=== PATIENT | female | born 1995 | race Caucasian/White ===

== ENCOUNTER 2020-07-24 21:10 | Emergency (ER) | payer MEDICAID ==
[~2020-07-24] VITALS: Ht 157.5 cm; Wt 65.8 kg
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
[2020-07-24] MEDS ORDERED: ACETAMINOPHEN ES 500 MG TABLET ONE (21:40)
--- NOTE | 2020-07-24 21:40 | NUR ---
XRAY AT BEDSIDE
[2020-07-24] MEDS ORDERED: ACETAMINOPHEN 325 MG TABLET PO ONE (22:00)
--- NOTE | 2020-07-24 22:53 | NUR ---
Patient discharged to home in stable condition. Written and verbal after care instructions given. Patient verbalizes understanding of instruction. Gait training done. Pt wheeled to family for dc
[2020-07-24 23:05] VITALS: BP 112/62
== END 2020-07-24 23:05 | disposition home or self-care (01) ==
LOC: ER 21:14
DX: S80.211A Abrasion, right knee, initial encounter (principal); M25.551 Pain in right hip; M54.5 Low back pain; M25.522 Pain in left elbow; V49.49XA Driver injured in collision with other motor vehicles in traffic accident, initial encounter; Y93.89 Activity, other specified; Y92.488 Other paved roadways as the place of occurrence of the external cause; Y99.8 Other external cause status
CPT/HCPCS: 72110-TC; 73080-TC; 73502

== ENCOUNTER 2021-01-23 18:31 | Emergency (ER) | payer MEDICAID, OTHER ==
[~2021-01-23] VITALS: Ht 144.8 cm; Wt 63.5 kg
[2021-01-23 18:53] VITALS: BP 121/65
[2021-01-23] MEDS ORDERED: ACET-2605 PO (19:03)
[2021-01-23] MEDS ORDERED: CYCL5TAB PO (19:03)
--- NOTE | 2021-01-23 19:09 | NUR ---
Patient discharged to home in stable condition. Written and verbal after care instructions given. Patient verbalizes understanding of instruction.
== END 2021-01-23 19:09 | disposition home or self-care (01) ==
LOC: ER 18:37
DX: S09.8XXA Other specified injuries of head, initial encounter (principal); M54.2 Cervicalgia; V49.49XA Driver injured in collision with other motor vehicles in traffic accident, initial encounter; Y93.89 Activity, other specified; Y92.413 State road as the place of occurrence of the external cause; Y99.8 Other external cause status

== ENCOUNTER 2021-05-07 18:57 | Emergency (ER) | payer OTHER ==
[~2021-05-07] VITALS: Ht 144.8 cm; Wt 68.0 kg
[~2021-05-07 18:57] MED LIST: ACET-2605 PO; CYCL5TAB PO
[2021-05-07 19:44] VITALS: BP 132/84
[2021-05-07] MEDS ORDERED: CYCLOBENZAPRINE 10 MG TABLET PO ONE (20:00)
[2021-05-07] MEDS ORDERED: KETOROLAC TROMETHAMINE INJ 60 MG/2 ML VIAL IM ONE ×2 (20:00→20:13)
[2021-05-07] MEDS ORDERED: CYCLOBENZAPRINE 10 MG TABLET ONE (20:13)
[2021-05-07] MEDS ORDERED: NAPR500T6 PO (20:27)
[2021-05-07] MEDS ORDERED: CYCL10TA9 PO (20:27)
== END 2021-05-07 20:36 | disposition home or self-care (01) ==
LOC: ER 19:58
DX: M79.10 Myalgia, unspecified site (principal); M25.512 Pain in left shoulder; R07.89 Other chest pain; M54.50 Low back pain, unspecified; Z79.899 Other long term (current) drug therapy; Z60.2 Problems related to living alone
CPT/HCPCS: 71045; 96372; 99283; J1885

== ENCOUNTER 2021-05-22 00:25 | Emergency (ER) | payer OTHER ==
[~2021-05-22] VITALS: Ht 144.8 cm; Wt 72.6 kg
[~2021-05-22 00:25] MED LIST changes: +CYCL10TA9 PO; +NAPR500T6 PO
[2021-05-22 01:13] VITALS: BP 136/92
[2021-05-22] MEDS ORDERED: HYDR453. TP (01:37)
== END 2021-05-22 01:39 | disposition home or self-care (01) ==
LOC: ER 00:25
DX: R21 Rash and other nonspecific skin eruption (principal); Z60.2 Problems related to living alone

== ENCOUNTER 2021-08-08 07:08 | Emergency (ER) | payer OTHER ==
[~2021-08-08] VITALS: Ht 149.9 cm; Wt 78.5 kg
[~2021-08-08 07:08] MED LIST changes: +HYDR453. TP
--- NOTE | 2021-08-08 07:22 | NUR ---
BIBSELF C/O SOB WITH COUGH FOR 1 WEEK. PATIENT ALERT AND ORIENTED X3. AMBULATORY AND PLACED IN BED 01 ON MONITOR AND POX.
--- NOTE | 2021-08-08 07:50 | NUR ---
Patient discharged to home in stable condition. Written and verbal after care instructions given. Patient verbalizes understanding of instruction.
[2021-08-08 08:01] VITALS: BP 150/90
== END 2021-08-08 08:03 | disposition home or self-care (01) ==
LOC: ER 07:11
DX: R09.82 Postnasal drip (principal); Z79.1 Long term (current) use of non-steroidal anti-inflammatories (NSAID); Z79.52 Long term (current) use of systemic steroids; Z79.899 Other long term (current) drug therapy; Z60.2 Problems related to living alone

== ENCOUNTER 2022-01-20 19:50 | Emergency (ER) | payer MEDICAID, OTHER ==
[~2022-01-20] VITALS: Ht 144.8 cm; Wt 88.5 kg
[2022-01-20] MEDS ORDERED: ONDANSETRON 4 MG TAB.RAPDIS ONE (21:18)
[2022-01-20] MEDS ORDERED: GUAIFENESIN/D-METHORPHAN HB 5 ML UDC ONE (21:18)
--- NOTE | 2022-01-20 21:28 | NUR ---
COVID SWAB COLLECTED SENT TO LAB
[2022-01-20] MEDS ORDERED: GUAIFENESIN/D-METHORPHAN HB 5 ML UDC PO ONE (21:30)
[2022-01-20] MEDS ORDERED: ONDANSETRON 4 MG TAB.RAPDIS SL ONE (21:30)
[2022-01-20] MEDS ORDERED: AZIT250T13 PO (22:48)
[2022-01-20] MEDS ORDERED: GUAI1TBM19 PO (22:48)
[2022-01-20] MEDS ORDERED: BENZ-13 PO (22:48)
--- NOTE | 2022-01-20 22:59 | NUR ---
Patient discharged to home in stable condition. Written and verbal after care instructions given. Patient verbalizes understanding of instruction.
[2022-01-20 23:00] VITALS: BP 138/77
== END 2022-01-20 23:00 | disposition home or self-care (01) ==
LOC: ER 19:52
DX: J40 Bronchitis, not specified as acute or chronic (principal); Z20.822 Contact with and (suspected) exposure to COVID-19
CPT/HCPCS: 99284; 71045; 87426; Q0162; C9803

== ENCOUNTER 2023-04-01 06:05 | Emergency (ER) | payer MEDICAID, OTHER ==
[~2023-04-01] VITALS: Ht 144.8 cm; Wt 84.8 kg
[~2023-04-01 06:05] MED LIST changes: +AZIT250T13 PO; +BENZ-13 PO; +GUAI1TBM19 PO
[2023-04-01 07:00] LABS: BASOPHILS # (AUTO) 0.1 K/uL (0.0-0.2); BASOPHILS % (AUTO) 0.8 % (0.0-2.0); EOSINOPHILS # (AUTO) 0.1 K/uL (0.0-0.7); EOSINOPHILS % (AUTO) 1.2 % (0.0-6.0); HEMATOCRIT 41 % (33-45); HEMOGLOBIN 13.5 g/dL (11.5-14.8); LYMPHOCYTES # (AUTO) 1.7 K/uL (0.8-4.8); LYMPHOCYTES % (AUTO) 18.9 % (20.0-44.0); MEAN CORPUSCULAR HEMOGLOBIN 30 PG (26.0-33.0); MEAN CORPUSCULAR HGB CONC 33 g/dl (31.0-36.0); MEAN CORPUSCULAR VOLUME 91 fL (82-100); MONOCYTES # (AUTO) 0.5 K/uL (0.1-1.30); NEUTROPHILS # (AUTO) 6.5 K/uL (1.8-8.9); NEUTROPHILS % (AUTO) 73.1 % (43.0-81.0); PLATELET COUNT (AUTO) 266 K/uL (150-450); RED BLOOD CELL COUNT(AUTO) 4.48 MIL/uL (4.0-5.2); RED CELL DISTRIBUTION WIDTH 13.8 % (11.5-15.0); WHITE BLOOD COUNT (AUTO) 8.8 K/uL (4.3-11.0)
[2023-04-01 07:15] LABS: ALBUMIN 3.9 g/dL (3.4-5.0); BILIRUBIN,DIRECT 0.1 mg/dL (0.0-0.2); BILIRUBIN,TOTAL 0.4 mg/dL (0.2-1.0); CALCIUM, SERUM 9.2 mg/dL (8.5-10.1); CREATININE 0.9 mg/dL (0.6-1.3); POTASSIUM 4.3 mmol/L (3.5-5.1); TOTAL PROTEIN, SERUM 7.6 g/dL (6.4-8.2)
[2023-04-01 07:44] LABS: APPEARANCE,URINE CLEAR (CLEAR); BILIRUBIN,URINE NEGATIVE (NEGATIVE); BLOOD, URINE 3+ Ery/uL (NEGATIVE); COLOR,URINE YELLOW (YELLOW); KETONES,URINE 1+ mg/dL (NEGATIVE); LEUKOCYTE ESTERASE ,URINE NEGATIVE (NEGATIVE); NITRITE, URINE NEGATIVE (NEGATIVE); PROTEIN,URINE TRACE mg/dl (NEGATIVE); UGLUCOSE NEGATIVE (NEGATIVE); UROBILINOGEN,URINE 0.2 EU/dL (0.2)
[2023-04-01 07:48] LABS: PREGNANCY TEST URINE QUAL NEGATIVE (NEGATIVE)
[2023-04-01 08:09] LABS: ADD URINE CULTURE YES; BACTERIA,URINE Few /HPF (None Seen); SQUAMOUS EPITHELIAL CELL,UR Many /HPF (None Seen)
[2023-04-01] MEDS ORDERED: LOPE2TAB25 PO (08:12)
[2023-04-01] MEDS ORDERED: ONDA4TAB5 PO (08:12)
[2023-04-01 08:48] VITALS: BP 104/60; TEMP 98.8; O2SAT 100
== END 2023-04-01 08:48 | disposition home or self-care (01) ==
LOC: ER 06:06
DX: K52.9 Noninfective gastroenteritis and colitis, unspecified (principal); F17.200 Nicotine dependence, unspecified, uncomplicated; Z60.2 Problems related to living alone
CPT/HCPCS: 36415; 80048-TC; 80076-TC; 81001; 83690-TC; 84703-TC; 85025-TC; 87086-TC

== ENCOUNTER 2023-09-07 06:10 | Emergency (ER) | payer OTHER ==
[~2023-09-07] VITALS: Ht 144.8 cm; Wt 86.2 kg
[~2023-09-07 06:10] MED LIST changes: +LOPE2TAB25 PO; +ONDA4TAB5 PO
[2023-09-07] MEDS ORDERED: KETOROLAC TROMETHAMINE 15 MG/ML VIAL ONE (06:35)
[2023-09-07] MEDS ORDERED: CYCLOBENZAPRINE 10 MG TABLET ONE (06:35)
[2023-09-07] MEDS: KETOROLAC TROMETHAMINE 15 MG/ML VIAL IM ONE (06:37)
[2023-09-07] MEDS: CYCLOBENZAPRINE 10 MG TABLET PO ONE (06:37)
[2023-09-07] MEDS ORDERED: LIDO30AD10 TP (06:55)
[2023-09-07] MEDS ORDERED: METH4TAB17 PO (06:55)
[2023-09-07] MEDS ORDERED: CYCL5TAB PO (06:55)
[2023-09-07] MEDS ORDERED: IBUP-1955 PO (06:55)
[2023-09-07] MEDS ORDERED: LIDOCAINE 5% (PATCH) 1 EA PATCH TP ONE (07:06)
[2023-09-07] MEDS: LIDOCAINE 5% (PATCH) 1 EA PATCH TP STA (07:06)
[2023-09-07 07:57] VITALS: BP 123/70; TEMP 98.2; O2SAT 97
== END 2023-09-07 08:07 | disposition home or self-care (01) ==
LOC: ER 06:12
DX: M54.42 Lumbago with sciatica, left side (principal); F17.200 Nicotine dependence, unspecified, uncomplicated; Z60.2 Problems related to living alone; Z79.899 Other long term (current) drug therapy
CPT/HCPCS: 99283; 96372; J1885

== ENCOUNTER 2024-01-14 21:27 | Emergency (ER) | payer OTHER ==
[~2024-01-14] VITALS: Ht 144.8 cm; Wt 86.2 kg
[~2024-01-14 21:27] MED LIST changes: +IBUP-1955 PO; +LIDO30AD10 TP; +METH4TAB17 PO
[2024-01-14 23:29] VITALS: BP 134/82; TEMP 98.1
[2024-01-14] MEDS ORDERED: FLUO20CA42 PO (23:36)
[2024-01-15 05:48] VITALS: O2SAT 98
== END 2024-01-15 05:49 | disposition home or self-care (01) ==
LOC: ER 21:33
DX: F29 Unspecified psychosis not due to a substance or known physiological condition (principal); Z76.0 Encounter for issue of repeat prescription; F17.200 Nicotine dependence, unspecified, uncomplicated; Z79.1 Long term (current) use of non-steroidal anti-inflammatories (NSAID); Z79.899 Other long term (current) drug therapy; Z79.891 Long term (current) use of opiate analgesic; Z60.2 Problems related to living alone

== ENCOUNTER 2024-03-31 04:46 | Emergency (ER) | payer OTHER ==
[~2024-03-31] VITALS: Ht 157.5 cm; Wt 102.1 kg
[~2024-03-31 04:46] MED LIST changes: +FLUO20CA42 PO
[2024-03-31] MEDS: ONDANSETRON HCL/PF - ER 4 MG/2 ML VIAL IV ONE (05:30)
[2024-03-31] MEDS: KETOROLAC TROMETHAMINE INJ 30 MG/ML VIAL IV ONE (05:30)
[2024-03-31] MEDS ORDERED: ONDANSETRON HCL/PF 4 MG/2 ML VIAL ONE (05:32)
[2024-03-31] MEDS ORDERED: KETOROLAC TROMETHAMINE INJ 30 MG/ML VIAL ONE (05:32)
[2024-03-31 06:16] LABS: APPEARANCE,URINE CLEAR (CLEAR); BILIRUBIN,URINE NEGATIVE (NEGATIVE); BLOOD, URINE 2+ Ery/uL (NEGATIVE); KETONES,URINE NEGATIVE (NEGATIVE); LEUKOCYTE ESTERASE ,URINE NEGATIVE (NEGATIVE); NITRITE, URINE NEGATIVE (NEGATIVE); PROTEIN,URINE 2+ mg/dl (NEGATIVE); UGLUCOSE NEGATIVE (NEGATIVE); UROBILINOGEN,URINE 0.2 EU/dL (0.2)
[2024-03-31 06:17] LABS: BASOPHILS # (AUTO) 0.1 K/uL (0.0-0.2); BASOPHILS % (AUTO) 0.4 % (0.0-2.0); EOSINOPHILS # (AUTO) 0.1 K/uL (0.0-0.7); EOSINOPHILS % (AUTO) 0.4 % (0.0-6.0); HEMATOCRIT 40 % (33-45); HEMOGLOBIN 13.2 g/dL (11.5-14.8); LYMPHOCYTES # (AUTO) 3.4 K/uL (0.8-4.8); LYMPHOCYTES % (AUTO) 19.9 % (20.0-44.0); MEAN CORPUSCULAR HEMOGLOBIN 31 PG (26.0-33.0); MEAN CORPUSCULAR HGB CONC 33 g/dl (31.0-36.0); MEAN CORPUSCULAR VOLUME 92 fL (82-100); MONOCYTES # (AUTO) 1.3 K/uL (0.1-1.30); MONOCYTES % (AUTO) 7.7 % (2.0-12.0); NEUTROPHILS # (AUTO) 12.1 K/uL (1.8-8.9); NEUTROPHILS % (AUTO) 71.6 % (43.0-81.0); PLATELET COUNT (AUTO) 236 K/uL (150-450); RED BLOOD CELL COUNT(AUTO) 4.33 MIL/uL (4.0-5.2); RED CELL DISTRIBUTION WIDTH 13.7 % (11.5-15.0); WHITE BLOOD COUNT (AUTO) 16.9 K/uL (4.3-11.0)
[2024-03-31 06:18] LABS: PREGNANCY TEST URINE QUAL NEGATIVE (NEGATIVE)
[2024-03-31 06:19] LABS: COLOR,URINE LIGHT YELLOW (YELLOW)
[2024-03-31 06:27] LABS: ALBUMIN 3.4 g/dL (3.4-5.0); BILIRUBIN,TOTAL 0.2 mg/dL (0.2-1.0); CALCIUM, SERUM 8.4 mg/dL (8.5-10.1); CREATININE 1.1 mg/dL (0.6-1.3); POTASSIUM 3.4 mmol/L (3.5-5.1); TOTAL PROTEIN, SERUM 6.7 g/dL (6.4-8.2)
[2024-03-31 06:41] LABS: AMPHETAMINE, URINE NEGATIVE (NEGATIVE); BARBITURATE, URINE NEGATIVE (NEGATIVE); BENZODIAZEPINE, URINE NEGATIVE (NEGATIVE); COCCAINE, URINE NEGATIVE (NEGATIVE); OPIATE, URINE NEGATIVE (NEGATIVE); PHENCYCLIDINE SCREEN,URINE NEGATIVE (NEGATIVE)
[2024-03-31 06:44] LABS: CANNABINOID, URINE POSITIVE (NEGATIVE)
[2024-03-31 06:54] LABS: ADD URINE CULTURE NO; BACTERIA,URINE Few /HPF (None Seen); WBC,URINE 0-2 /HPF (0-3)
[2024-03-31] MEDS ORDERED: ONDA4TAB5 PO (07:06)
[2024-03-31] MEDS ORDERED: HYDR-4303 PO (07:06)
[2024-03-31] MEDS ORDERED: MORPHINE SULFATE INJ 2 MG/ML DISP.SYRIN ONE (07:28)
[2024-03-31] MEDS: MORPHINE SULFATE INJ 2 MG/ML DISP.SYRIN IV ONE (07:40)
[2024-03-31 08:28] VITALS: BP 102/68; TEMP 98.8; O2SAT 96
== END 2024-03-31 08:15 | disposition home or self-care (01) ==
LOC: ER 04:56
DX: M54.12 Radiculopathy, cervical region (principal); M25.512 Pain in left shoulder; M54.50 Low back pain, unspecified; R11.2 Nausea with vomiting, unspecified; F17.210 Nicotine dependence, cigarettes, uncomplicated
CPT/HCPCS: 99285; 96374; 71045; 93005; 96376; 73030; 85025; 83690; 84703; 36415; 80053; 80307; 81001; J1885; J2405 ×2; J2270